=== PATIENT | male | born 1960 | race Caucasian/White ===

== ENCOUNTER → 2016-03-29 | Outpatient (CLI) | payer OTHER ==
[2016-03-29 07:31] LABS: Blood Urea Nitrogen 19 mg/dL (9-20); Non-African American GFR(MDRD) >60 (>60 ml/min/1.73 sqM)
--- NOTE | 2016-03-29 08:16 | CT ---
EXAMINATION TYPE: CT chest w con DATE OF EXAM: 03/29/2016 8:04 AM COMPARISON: NONE HISTORY: Asbestos exposure CT DLP: 708.60 mGycm Automated exposure control for dose reduction was used. CONTRAST: CT scan of the chest is performed with IV Contrast, patient injected with 100 ml mL of Omnipaque 300. FINDINGS: LUNGS: The lungs are grossly clear, there is no concerning parenchymal mass or nodule identified. T here is no pleural effusion or pneumothorax seen. The tracheobronchial tree is patent. No pleural th ickening or calcification. There is a tiny granuloma within the right upper lobe. MEDIASTINUM: There are no greater than 1 cm hilar or mediastinal lymph nodes. No pericardial effusi on is seen. OTHER: Tiny infiltration of the liver noted. Hypertrophic and degenerative change of the spine. Prev ious cholecystectomy changes seen. Small hiatal hernia noted. IMPRESSION: 1. No diagnostic evidence of asbestosis related disease. 2. Single tiny calcified granuloma within the right upper lobe.
== END | disposition home or self-care (01) ==
LOC: RADCTMAIN 06:52
PROVIDERS: ATTEND Family Medicine
DX: Z09 Encounter for follow-up examination after completed treatment for conditions other than malignant neoplasm (principal); Z77.090 Contact with and (suspected) exposure to asbestos; J84.10 Pulmonary fibrosis, unspecified
CPT/HCPCS: 82565; 84520; 71260; Q9967

== ENCOUNTER 2016-04-05 07:50 | Day surgery (SDC) | payer OTHER ==
[2016-03-30 15:43] VITALS: BMI 35.9
[~2016-04-05 07:50] MED LIST: LACTATED RINGERS 1,000 ML IV SCH
[2016-04-05] MEDS ORDERED: LIDOCAINE 1% 20 ML VIAL (10MG/ML) FOR IV START SQ ONE (08:09)
[2016-04-05 08:16] VITALS: RESP 16; TEMP 98.2
[2016-04-05 08:27] LABS: Glucose,Whole Blood 105 mg/dL (75-99)
[2016-04-05] MEDS ORDERED: PROPOFOL 10 MG/ML 20 ML VIAL IV ONE (08:43)
[2016-04-05] MEDS ORDERED: LIDOCAINE 1% INJ 10MG/ML (20 ML MDV) ONE (08:43)
--- NOTE | 2016-04-05 08:53 | P.GSHP ---
History of Present Illness H&P Date: 04/05/16 Chief Complaint: GERD, dysphagia This is a 55-year-old male referred from Dr. Francisco. Patient will stay for EGD. He's had issues with GERD and dysphagia. - Constitutional Constitutional: Reports as per HPI Past Medical History Past Medical History: Cancer, COPD, Diabetes Mellitus, GERD/Reflux, Hyperlipidemia, Hypertension, Osteoarthritis (OA) Additional Past Medical History / Comment(s): SKIN CANCER History of Any Multi-Drug Resistant Organisms: None Reported Past Surgical History: Cholecystectomy Additional Past Surgical History / Comment(s): ARTHROSCOPIC RIGHT AND LEFT KNEE , CARPAL TUNNEL WRIST Past Anesthesia/Blood Transfusion Reactions: No Reported Reaction Past Psychological History: No Psychological Hx Reported Smoking Status: Current every day smoker Past Alcohol Use History: Occasional Additional Past Alcohol Use History / Comment(s): STARTED SMOKING AT AGE 18 SMOKES 1-2PPD Past Drug Use History: None Reported - Past Family History Mother Family Medical History: No Reported History Medications and Allergies Home Medications Medication Instructions Recorded Confirmed Type Aspirin [Adult Low Dose Aspirin EC] 81 mg PO DAILY 03/30/16 03/30/16 History Atorvastatin [Lipitor] 40 mg PO HS 03/30/16 04/05/16 History Fluticasone Nasal [place] [Flonase 1 spray EA NOSTRIL 219903/30/16 04/05/16 History Nasal [place]] Glimepiride [Amaryl] 4 mg PO 0 03/30/16 04/05/16 History Lisinopril [Zestril] 10 mg PO 0 03/30/16 03/30/16 History Multivitamin [Men's Multi-Vitamin] 1 each PO DAILY 03/30/16 03/30/16 History Omeprazole [PriLOSEC] 20 mg PO 0 03/30/16 04/05/16 History Pioglitazone [Actos] 45 mg PO 0 03/30/16 04/05/16 History metFORMIN HCL 1,000 mg PO BID 03/30/16 03/30/16 History Allergies Allergy/AdvReac Type Severity Reaction Status Date / Time No Known Allergies Allergy Verified 03/30/16 14:53 Surgical - Exam Vital Signs Temp Pulse Resp BP Pulse Ox 98.2 F 85 16 146/87 96 04/05/16 08:15 04/05/16 08:15 04/05/16 08:15 04/05/16 08:15 04/05/16 08:15 - General well developed, no distress - Eyes PERRL - ENT normal pinna - Neck no masses - Respiratory normal expansion - Cardiovascular Rhythm: regular - Abdomen Abdomen: soft, non tender Results - Labs Abnormal Lab Results - Last 24 Hours (Table) 04/05/16 Range/Units 08:23 POC Glucose (mg/dL) 105 H (75-99) mg/dL Assessment and Plan Plan: GERD, dysphagia. We'll perform EGD
--- NOTE | 2016-04-05 09:02 | P.OP ---
Date of Procedure: 04/05/16 Preoperative Diagnosis: GERD Dysphagia Postoperative Diagnosis: Mild antral gastritis Mild esophagitis No evidence of hiatal hernia Procedure(s) Performed: EGD Anesthesia: MAC Surgeon: Aaron Kaur Pathology: other (Antrum, esophagus) Condition: stable Disposition: PACU Description of Procedure: The patient's placed on the endoscopy table in the lateral position. He received IV sedation. The gastroscope some placed oropharynx passed in the esophagus and into the stomach. Scope was then placed through the pylorus. The first and second portion of the duodenum appeared normal. Scope was then brought back the antrum this. Mildly inflamed. A biopsies performed. The scope was unretroflexed and remainder stomach appeared normal. There is no evidence of hiatal hernia. The GE junction was at 40 cm. The distal esophagus appeared minimally inflamed a biopsy was performed. The proximal esophagus Appeared Normal. Scope was withdrawn for patient.
[2016-04-05 09:07] VITALS: BP 114/68; PULSE 71
== END 2016-04-05 09:55 | disposition home or self-care (01) ==
LOC: ORWHC2ENDO 07:50
PROVIDERS: ATTEND Surgery
DX: K21.9 Gastro-esophageal reflux disease without esophagitis (principal); K29.50 Unspecified chronic gastritis without bleeding; K20.0 Eosinophilic esophagitis; I10 Essential (primary) hypertension; E78.5 Hyperlipidemia, unspecified; E11.9 Type 2 diabetes mellitus without complications; J44.9 Chronic obstructive pulmonary disease, unspecified; M19.90 Unspecified osteoarthritis, unspecified site; F17.200 Nicotine dependence, unspecified, uncomplicated; Z79.82 Long term (current) use of aspirin; Z79.51 Long term (current) use of inhaled steroids; Z79.84 Long term (current) use of oral hypoglycemic drugs; Z79.899 Other long term (current) drug therapy
CPT/HCPCS: 43239; 88305; 88342; J2001; J2704

== ENCOUNTER → 2016-12-22 | Outpatient (CLI) | payer OTHER ==
--- NOTE | 2016-12-22 08:52 | FL ---
EXAMINATION TYPE: FL UGI air DATE OF EXAM: 12/22/2016 COMPARISON: CT chest March 29, 2016. CT abdomen and pelvis December 18, 2012. HISTORY: Epigastric pain, reflux-like symptoms, feeling of aspiration, gastritis, and abnormal weight loss all per patient. TECHNIQUE: A double contrast UGI study is performed. A total of 85 seconds of fluoroscopic time was utilized during procedure. 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 The esophagus shows normal motility and emptying into the stomach. No evidence of hiatal hernia or s tricture noted. The stomach shows normal distensibility and peristalsis. There is mild to moderate prominence of gas tric folds towards the fundus. No evidence of any intraluminal mass or ulcer disease. No significant gastroesophageal reflux was seen during real time performance of this study. The duodenal bulb and proximal small bowel loops are unremarkable. A small diverticulum is seen along superior aspect of third portion of duodenum. IMPRESSION: Mild to moderate fundal gastritis without ulcer disease. Note is made of possible new spl enomegaly, correlate clinically.
== END | disposition home or self-care (01) ==
LOC: RADFLMAIN 07:05
PROVIDERS: ATTEND Family Medicine
DX: K29.70 Gastritis, unspecified, without bleeding (principal); R79.89 Other specified abnormal findings of blood chemistry
CPT/HCPCS: 74246

== ENCOUNTER 2016-12-28 15:40 | Emergency (ER) | payer OTHER ==
[2016-12-28] MEDS ORDERED: IBUPROFEN 600 MG TAB PO STA (16:29)
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
[2016-12-28 17:44] VITALS: BP 160/89; PULSE 78; RESP 18; TEMP 98.9
== END 2016-12-28 17:44 | disposition home or self-care (01) ==
LOC: EC 15:40
DX: T22.012A Burn of unspecified degree of left forearm, initial encounter (principal); T22.022A Burn of unspecified degree of left elbow, initial encounter; T22.032A Burn of unspecified degree of left upper arm, initial encounter; T21.09XA Burn of unspecified degree of other site of trunk, initial encounter; T31.0 Burns involving less than 10% of body surface; I10 Essential (primary) hypertension; E11.9 Type 2 diabetes mellitus without complications; F17.200 Nicotine dependence, unspecified, uncomplicated; Z79.51 Long term (current) use of inhaled steroids; Z79.82 Long term (current) use of aspirin; Z79.84 Long term (current) use of oral hypoglycemic drugs; Z79.899 Other long term (current) drug therapy; X13.1XXA Other contact with steam and other hot vapors, initial encounter; X12.XXXA Contact with other hot fluids, initial encounter; Y92.69 Other specified industrial and construction area as the place of occurrence of the external cause; Y99.0 Civilian activity done for income or pay
CPT/HCPCS: 99283

== ENCOUNTER → 2017-02-01 | Outpatient (CLI) | payer OTHER ==
[2017-02-01 09:00] LABS: Blood Urea Nitrogen 14 mg/dL (9-20); Non-African American GFR(MDRD) >60 (>60 ml/min/1.73 sqM)
--- NOTE | 2017-02-01 10:33 | CT ---
EXAMINATION TYPE: CT abdomen w con DATE OF EXAM: 02/01/2017 COMPARISON: 12/18/2012 HISTORY: 56-year-old male Epigastric pain. Scanned by: LJ and CS. TECHNIQUE: Contiguous axial scanning of the abdomen and pelvis following administration of 100 ml Omn ipaque 300 IV contrast. Delayed images through the kidneys and coronal/sagittal reconstructions perf ormed. CT DLP: 1324 mGycm Automated exposure control for dose reduction was used. FINDINGS: Heart is normal size without pericardial effusion. Prominent left-sided epicardial lymph node measure s 1 cm, unchanged from 2013 suggesting chronic postinflammatory etiology. Tiny hiatal hernia. Minimal emphysematous change in the visualized lower lungs without pleural effusi on. Liver is enlarged measuring 19.2 cm craniocaudal. Low attenuation of the parenchyma compared to the s pleen suggesting fatty infiltration. Portal venous system is patent. Status post cholecystectomy. No biliary ductal dilatation seen. There is mild mucosal fold thickening along the gastric fundus. No dilated small bowel, free fluid, or free air. Scattered nonenlarged and borderline-sized lymph nodes are present in the mesentery measuring up to 8 mm on the left, coronal image 43 and axial image 40. No retroperitoneal lymphadenopathy. Adrenal glands, left kidney, and spleen appear within normal limits. The right kidney is slightly mal rotated. Scattered mild to moderate stool. Occasional left colonic diverticula without pericolonic inflammator y change seen. The pelvis is not imaged. Bones: Scattered sclerotic foci in the pelvis stable suggestive of bone islands degenerative changes within the lumbar spine with disc osteophyte complexes at multiple levels narrowing the spinal canal. No osseous destructive process. IMPRESSION: 1. MILD FOCAL THICKENING ALONG THE GASTRIC FUNDUS COULD REFLECT GASTRITIS. 2. TINY HIATAL HERNIA. 3. HEPATOMEGALY AND HEPATIC STEATOSIS. CORRELATE WITH LFT's, LIPID PROFILE, AND PATIENT RISK FACTORS. 4. SCATTERED NONENLARGED BORDERLINE SIZED MESENTERIC LYMPH NODES LIKELY REACTIVE/POST INFLAMMATORY. 5. MILD EMPHYSEMA.
== END | disposition home or self-care (01) ==
LOC: RADCTMAIN 08:19
PROVIDERS: ATTEND Family Medicine
DX: K44.9 Diaphragmatic hernia without obstruction or gangrene (principal); K76.0 Fatty (change of) liver, not elsewhere classified; R16.0 Hepatomegaly, not elsewhere classified; K31.89 Other diseases of stomach and duodenum; R10.13 Epigastric pain
CPT/HCPCS: 82565; 84520; 74160; 36415; Q9967

== ENCOUNTER 2017-02-18 05:23 | Emergency (ER) | payer OTHER ==
[2017-02-18] MEDS ORDERED: IBUPROFEN 800 MG TAB PO STA (06:02)
[2017-02-18] MEDS ORDERED: Acetaminophen-Codeine 300-30mg TAB PO STA (06:02)
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
[2017-02-18 06:33] VITALS: BP 151/71; PULSE 74; RESP 18; TEMP 97.7
== END 2017-02-18 06:34 | disposition home or self-care (01) ==
LOC: EC 05:23
DX: T22.20XA Burn of second degree of shoulder and upper limb, except wrist and hand, unspecified site, initial encounter (principal); T31.0 Burns involving less than 10% of body surface; E11.9 Type 2 diabetes mellitus without complications; I10 Essential (primary) hypertension; F17.200 Nicotine dependence, unspecified, uncomplicated; Z79.82 Long term (current) use of aspirin; Z79.84 Long term (current) use of oral hypoglycemic drugs; Z79.899 Other long term (current) drug therapy; X08.8XXA Exposure to other specified smoke, fire and flames, initial encounter; Y93.89 Activity, other specified; Y92.69 Other specified industrial and construction area as the place of occurrence of the external cause
CPT/HCPCS: 16020; 99283

== ENCOUNTER → 2017-05-30 | Outpatient (CLI) | payer OTHER ==
--- NOTE | 2017-05-31 03:12 | CT ---
EXAMINATION TYPE: CT soft tissue neck wo con DATE OF EXAM: 05/30/2017 COMPARISON: NONE HISTORY: 56-year-old male c/o left anterior neck tenderness, sore throat TECHNIQUE: Contiguous axial scanning of the tissues of the neck without IV contrast. Coronal and sagi ttal reconstructions performed. CT DLP: 549 mGycm Automated exposure control for dose reduction was used. FINDINGS: Visualized intracranial structures, orbits and globes, paranasal sinuses, and mastoid air cells appea r clear. There is rightward nasal septal deviation. Allowing for noncontrast technique which limits assessment of the mucosal space, the nasopharynx is c lear. Punctate calcification in the right side of the tonsils can be seen in the setting of prior infection . There may be slight asymmetric fullness in the region of the left palatine tonsil. Dental amalgam a rtifact is present and limits visualization of the oropharynx. Epiglottis and prevertebral soft tissues appear within normal limits. The glottic and subglottic structures as well as the tracheal column and visualized lung apices show no gross abnormality. Thyroid gland appears bulky and to be further evaluated with thyroid ultrasound. The left submandibul ar gland is small and atrophic. Air appears to be essentially complete fatty replacement of the right submandibular gland. Parotid glands appear satisfactory. Nonspecific prominent 7 mm intraparotid lymph node on the left. Some scattered nonenlarged lymph node s are present on both sides of the neck measuring up to 9 mm upper right cervical spine. Mild atherosclerotic calcifications at both carotid bifurcations. Bones: Osseous destructive process seen. IMPRESSION: 1. SLIGHT ASYMMETRIC FULLNESS IN THE REGION OF THE LEFT PALATINE TONSILS COULD REPRESENT REACTIVE LYM PHOID HYPERPLASIA. PUNCTATE CALCIFICATION IN THE RIGHT TONSIL SUGGESTS SEQUELA OF REMOTE INFECTION. 3. BULKY THYROID GLAND CAN BE FURTHER EVALUATED WITH DEDICATED THYROID ULTRASOUND. 4. ASSESSMENT OF THE MUCOSAL SPACE LIMITED DUE TO LACK OF IV CONTRAST. 5. COMPLETE FATTY REPLACEMENT OF THE RIGHT SUBMANDIBULAR GLAND INCIDENTALLY NOTED.
== END | disposition home or self-care (01) ==
LOC: RADCTMAIN 17:26
PROVIDERS: ATTEND Family Medicine
DX: M54.2 Cervicalgia (principal)
CPT/HCPCS: 70490

== ENCOUNTER → 2018-10-01 | Outpatient (CLI) | payer OTHER ==
--- NOTE | 2018-10-01 22:47 | MR ---
EXAMINATION TYPE: MR knee RT wo con DATE OF EXAM: 10/01/2018 COMPARISON: NONE HISTORY: Rt knee pain TECHNIQUE: Multiplanar, multisequence images of the knee is performed without IV contrast. FINDINGS: MEDIAL MENISCUS: Anterior horn is intact without tear. 2 areas of Oblique signal posterior horn of me dial meniscus extends to inferior articular surface sagittal image 7. LATERAL MENISCUS: Anterior and posterior horns are intact without tear. CRUCIATE LIGAMENTS: The anterior and posterior cruciate ligaments are intact and unremarkable. COLLATERAL LIGAMENTS: The medial collateral ligament and lateral collateral ligament complex are inta ct and unremarkable. EXTENSOR MECHANISM: Visualized quadriceps and patellar tendons are intact. EFFUSION: There is small suprapatellar joint effusion. POPLITEAL CYST: No popliteal/sorensen cyst. TRICOMPARTMENT SPACES: Mild to moderate tricompartment joint space loss with mild spurring CARTILAGE: Some early chondromalacia patella with fissuring of articular cartilage along posterior pa tellar pole sagittal image 19 for reference. No full-thickness cartilaginous loss. BONE MARROW SIGNAL: Multifocal areas of low T1 and T2 signal consistent with multifocal areas of scle rosis possible bony canal stenosis, consider underlying osteopoikilosis. Correlation with radiographs is advised. OTHER: No additional significant abnormality is appreciated. IMPRESSION: 1. Full-thickness tear posterior horn of medial meniscus. 2. Mild to borderline moderate tricompartment degenerative changes as detailed above. 3. Small suprapatellar joint effusion. 4. Multiple tiny bony lesions on MRI presumed benign consider osteopoikilosis, correlate with radiogr aphs.
== END | disposition home or self-care (01) ==
LOC: RADMRIMAIN 20:29
PROVIDERS: ATTEND Orthopaedic Surgery
DX: S83.241A Other tear of medial meniscus, current injury, right knee, initial encounter (principal); M17.11 Unilateral primary osteoarthritis, right knee; E11.9 Type 2 diabetes mellitus without complications; F17.200 Nicotine dependence, unspecified, uncomplicated; I10 Essential (primary) hypertension; E78.5 Hyperlipidemia, unspecified; M19.012 Primary osteoarthritis, left shoulder; M25.612 Stiffness of left shoulder, not elsewhere classified

== ENCOUNTER → 2018-12-13 | Outpatient (CLI) | payer OTHER ==
--- NOTE | 2018-12-13 16:40 | MR ---
EXAMINATION TYPE: MR shoulder LT wo con DATE OF EXAM: 12/13/2018 2:55 PM COMPARISON: NONE HISTORY: Left shoulder pain TECHNIQUE: Multiplanar multispin echo imaging of the left shoulder was performed. FINDINGS: Rotator cuff : There is thickening and heterogeneity of the supraspinatus tendon with small undersurf kenyon partial tear noted at the level of the critical zone. No evidence for full-thickness tear. The re maining constituents of the rotator cuff are intact. Bursa: No bursal effusion or thickening is seen. Musculature: There is no muscular tear, contusion, or atrophy. Acromioclavicular joint : There are mild degenerative changes of the acromioclavicular joint. There is no anterior or lateral acromial downsloping. Osseous structures : Subchondral cystic change humeral head. There are no fractures or regions of abn ormal bone marrow signal intensity. Long biceps tendon : The biceps tendon is normally situated within the bicipital groove. No complete or partial biceps tendon tear is present. Glenohumeral Joint fluid : There is no glenohumeral joint effusion. Cartilage and Bone : No focal hyaline cartilage defects are noted. No Hill-Sachs, reverse Hill-Sachs, or bony [place] lesions are seen. Labrum : There are no SLAP or soft tissue [place] lesions. No paralabral cysts are seen. OTHER FINDINGS : none IMPRESSION: 1. There is thickening and heterogeneity of the supraspinatus tendon with small undersurface partial tear noted at the level of the critical zone. No evidence for full-thickness tear.
== END | disposition home or self-care (01) ==
LOC: RADMRIMAIN 14:13
PROVIDERS: ATTEND Orthopaedic Surgery
DX: M75.122 Complete rotator cuff tear or rupture of left shoulder, not specified as traumatic (principal)

== ENCOUNTER → 2019-08-02 | Outpatient (CLI) | payer OTHER ==
--- NOTE | 2019-08-02 15:29 | MR ---
EXAMINATION TYPE: MR knee LT wo con DATE OF EXAM: 08/02/2019 COMPARISON: HISTORY: L knee pain TECHNIQUE: Multiplanar, multisequence images of the knee is performed without IV contrast. FINDINGS: MEDIAL MENISCUS: There is oblique signal through the posterior horn medial meniscus communicating wit h the inferior articular surface compatible with a tear. Some increased signal is in the anterior hor n medial meniscus without communication with the articular surface. Horizontal tear may be present at this level. LATERAL MENISCUS: There is increased signal within the anterior and posterior horns of the lateral me niscus without communication with an articular surface. Mild type I tear or internal derangement coul d be considered. Degenerative change be considered. CRUCIATE LIGAMENTS: The anterior and posterior cruciate ligaments are intact and unremarkable. COLLATERAL LIGAMENTS: Medial collateral ligament has mild increased signal could be related to a stra in. Note is made of contusion of the medial tibial plateau. Lateral collateral ligament appears intac t. EXTENSOR MECHANISM: Visualized quadriceps and patellar tendons are intact. EFFUSION: No significant suprapatellar joint effusion. POPLITEAL CYST: No popliteal/sorensen cyst. TRICOMPARTMENT SPACES: Preserved CARTILAGE: Preserved BONE MARROW SIGNAL: Contusion of the medial tibial plateau. OTHER: No additional significant abnormality is appreciated. IMPRESSION: 1. Oblique tear posterior horn medial meniscus. 2. Horizontal signal compatible with a type I tear without communication with the articular surface o f the anterior horn medial. 3. Degenerative changes or internal derangement compatible with a mild type I tear anterior and poste rior horns lateral meniscus. 4. Mild strain of the medial collateral ligament. 5. Contusion of the medial tibial plateau.
== END | disposition home or self-care (01) ==
LOC: RADMRIMAIN 11:56
PROVIDERS: ATTEND Orthopaedic Surgery
DX: S83.242A Other tear of medial meniscus, current injury, left knee, initial encounter (principal); S80.02XA Contusion of left knee, initial encounter; S83.412A Sprain of medial collateral ligament of left knee, initial encounter; E11.9 Type 2 diabetes mellitus without complications; F17.200 Nicotine dependence, unspecified, uncomplicated; I10 Essential (primary) hypertension; E78.5 Hyperlipidemia, unspecified

== ENCOUNTER → 2019-08-14 | Outpatient (CLI) | payer OTHER ==
--- NOTE | 2019-08-15 02:38 | MR ---
EXAMINATION TYPE: MR shoulder LT wo con DATE OF EXAM: 08/14/2019 COMPARISON: 12/13/2018 HISTORY: Left Shoulder Pain, RCT, Loss of Range of Motion. Known Bicepts Tendon tear. Multiplanar multiecho imaging of the left shoulder was performed without contrast. FINDINGS: The AC joint is intact. There is no subacromial impingement. There is some increased signal in the silva praspinatus tendon on the T2 images without retraction. There is slight increased fluid around the supraspinatus tendon. Biceps tendon is intact. The subscap ularis tendon is intact. The glenoid clint appear intact. IMPRESSION: There is partial tear of the supraspinatus tendon with mild surrounding fluid consistent with tendini tis. Fluid increased slightly compared to old exam. No full-thickness tear or retraction. No fracture .
== END | disposition home or self-care (01) ==
LOC: RADMRIMAIN 18:26
PROVIDERS: ATTEND Orthopaedic Surgery Sports Medicine
DX: M75.112 Incomplete rotator cuff tear or rupture of left shoulder, not specified as traumatic (principal); M75.42 Impingement syndrome of left shoulder; M75.02 Adhesive capsulitis of left shoulder; E11.9 Type 2 diabetes mellitus without complications; I10 Essential (primary) hypertension; F17.200 Nicotine dependence, unspecified, uncomplicated